=== PATIENT | male | born 1995 | race African-American/Black ===

== ENCOUNTER → 2020-05-16 | Outpatient (REF) | payer BC ==
[2020-05-16 19:55] LABS: CHLAMYDIA DNA AMPLIFICATION NEGATIVE (NEGATIVE); GC DNA AMPLIFICATION NEGATIVE (NEGATIVE)
== END ==
LOC: M LAB REF 17:43
PROVIDERS: ATTEND Physician Assistant
DX: Z11.3 Encounter for screening for infections with a predominantly sexual mode of transmission (principal)

== ENCOUNTER → 2020-06-14 | Outpatient (REF) | payer BC | LOC: M LAB REF 09:05 | PROVIDERS: ATTEND Physician Assistant Medical | DX: Z11.59 Encounter for screening for other viral diseases (principal); Z20.828 Contact with and (suspected) exposure to other viral communicable diseases ==

== ENCOUNTER → 2020-09-13 | Outpatient (REF) | payer BC | LOC: M LAB REF 15:12 | PROVIDERS: ATTEND Physician Assistant | DX: Z11.3 Encounter for screening for infections with a predominantly sexual mode of transmission (principal) ==

== ENCOUNTER → 2020-09-17 | Outpatient (CLI) | payer BC ==
[2020-09-17 21:30] LABS: HIV 1&2 SCREEN CENTAUR NEGATIVE (NEGATIVE)
== END ==
LOC: M WUC 17:42
PROVIDERS: ATTEND Physician Assistant
DX: J02.9 Acute pharyngitis, unspecified (principal); Z20.2 Contact with and (suspected) exposure to infections with a predominantly sexual mode of transmission

== ENCOUNTER → 2020-09-26 | Outpatient (REF) | payer BC | LOC: M LAB 18:39 | PROVIDERS: ATTEND Physician Assistant | DX: Z11.3 Encounter for screening for infections with a predominantly sexual mode of transmission (principal) ==

== ENCOUNTER 2024-08-14 11:49 | Emergency (ER) | payer BC ==
[~2024-08-14] VITALS: Ht 182.9 cm; Wt 106.2 kg
[2024-08-14 13:59] VITALS: BP 137/62; TEMP 96.9; O2SAT 99
== END 2024-08-14 15:58 | disposition home or self-care (01) ==
LOC: M ED 11:49
DX: S83.92XA Sprain of unspecified site of left knee, initial encounter (principal); Y92.39 Other specified sports and athletic area as the place of occurrence of the external cause; Y93.9 Activity, unspecified; Y99.9 Unspecified external cause status